=== PATIENT | male | born 1975 | race Asian ===

== ENCOUNTER 2019-11-16 14:59 | Emergency (ER) | payer OTHER ==
--- NOTE | 2019-11-16 15:08 | PDOC ---
History of Present Illness - General Chief Complaint: Wound Stated Complaint: BOIL Time Seen by Provider: 11/16/19 15:05 - History of Present Illness Initial Comments: HPI: 44yo M with no reported PMH presenting with left buttock pain. Patient states he has had pain in this area for the past week. The area started as a small site and progressively enlarged. The pain significantly worsened over that time likely because he has endured long international flights. [place], he saw a pharmacist and was given miconazole cream to place over the area which he believes has helped. Pain worsens with certain movements including standing or sitting in a certain way. Patient has not noticed any discharge or bleeding from the area. Has never had an infection like this before. No fevers or chills. PCP: Dr. Nuno Coombs (has never seen him before but has an appointment on Sunday) ROS: Constitutional: no fever, no chills HEENT: no throat pain, no dysphagia Cardiovascular: no chest pain, no palpitations Respiratory: no cough, no shortness of breath Gastrointestinal: no abdominal pain, no nausea Genitourinary: no dysuria, no hematuria Musculoskeletal: no myalgia, no arthralgia Skin: +infection, no itching Neurologic: no headache, no weakness Psych: no agitation, no anxiety PE: General: Awake, alert, and fully oriented, in no acute distress Head: No signs of trauma Eyes: EOMI, sclera anicteric ENT: Moist mucus membranes Neck: Normal ROM, supple Lungs: Lungs clear, Normal breath sounds Cardio: Regular rhythm, S1 and S2 present Abdomen: Soft, nontender. No guarding, no rebound, no masses Extremities: Normal range of motion, Distal pulses present SKIN: ~5cm area of soft tissue swelling/erythema/tenderness/fluctuance along intergluteal cleft and abutting perineal area, otherwise warm, dry, normal turgor Neurologic: Cranial nerves II through XII grossly intact. Normal speech ED Course/MDM: DDX including but not limited to abscess, cellulitis, perirectal vs anorectal abscess Patient declined pain medication Labs CT Pelvis with IV contrast as we are concerned about anorectal involvement 11/16/19 15:51 CBC WBC 7.8 K/mm3 (4.0-10.8) 11/16/19 15:50 RBC 4.65 M/mm3 (4.00-5.60) 11/16/19 15:50 Hgb 14.7 GM/dl (11.7-16.9) 11/16/19 15:50 Hct 43.9 % (35.4-49) 11/16/19 15:50 MCV 94.3 fl (80-96) 11/16/19 15:50 MCH 31.5 pg (25.7-33.7) 11/16/19 15:50 MCHC 33.5 g/dl (32.0-35.9) 11/16/19 15:50 RDW 11.8 % (11.9-15.9) L 11/16/19 15:50 Plt Count 286 K/MM3 (134-434) 11/16/19 15:50 MPV 7.6 fl (7.5-11.1) 11/16/19 15:50 Absolute Neuts (auto) 5.4 K/mm3 11/16/19 15:50 Neutrophils % 67.5 % (42.8-82.8) 11/16/19 15:50 Lymphocytes % 22.4 % (8-40) 11/16/19 15:50 Monocytes % 8.0 % (3.8-10.2) 11/16/19 15:50 Eosinophils % 1.7 % (0-4.5) 11/16/19 15:50 Basophils % 0.4 % (0-2.0) 11/16/19 15:50 No leukocytosis CMP Sodium 138 mmol/L (136-145) 11/16/19 15:50 Potassium 4.0 mmol/L (3.5-5.1) 11/16/19 15:50 Chloride 105 mmol/L (98-107) 11/16/19 15:50 Carbon Dioxide 23 mmol/L (21-32) 11/16/19 15:50 Anion Gap 10 MMOL/L (8-16) 11/16/19 15:50 BUN 18.0 mg/dl (7-18) 11/16/19 15:50 Creatinine 0.9 mg/dl (0.55-1.3) 11/16/19 15:50 Est GFR (CKD-EPI)AfAm 120.81 11/16/19 15:50 Est GFR (CKD-EPI)NonAf 104.24 11/16/19 15:50 Random Glucose 117 mg/dl (74-106) H 11/16/19 15:50 Calcium 9.2 mg/dl (8.5-10) 11/16/19 15:50 Total Bilirubin 0.7 mg/dl (0.2-1) 11/16/19 15:50 AST 21 U/L (15-37) 11/16/19 15:50 ALT 23 U/L (13-61) 11/16/19 15:50 Alkaline Phosphatase 56 U/L (45-117) 11/16/19 15:50 Total Protein 6.6 g/dl (6.4-8.2) 11/16/19 15:50 Albumin 3.9 g/dl (3.4-5.0) 11/16/19 15:50 Electrolytes unremarkable Cr normal No transaminitis CT as read by imaging realtime captioner: "REASON FOR EXAM: Left buttock abscess COMPARISON: NONE FINDINGS: Posterior perianal abscess is seen measuring 2.8 x 2.4 x 1.7 cm located along the left intergluteal fold with enhancing capsule and surrounding soft tissue thickening. There is no evidence of bowel obstruction, colitis, ascites, abscess, free air or pneumatosis. The appendix is normal. There is no suspicious pelvic mass or pathologic adenopathy. No evidence of inguinal hernias. Distal abdominal aorta, iliac and common femoral arteries are patent. The bladder is unremarkable. Bony pelvis is intact and without fracture or dislocation. Bilateral hip joints are within normal. SI joints and symphysis pubis observed without diastasis. Pelvic muscles intact without evidence of injury. No hematoma. IMPRESSION: Posterior perianal abscess with cellulitis." I&D performed Please see procedure note 11/16/19 18:06 Percocet for pain Wound to be evaluated in two days, either at PCP office or in the ED Strong return precautions given Stable for discharge 11/16/19 18:12 Past History - Past Medical History Allergies/Adverse Reactions: Allergies Allergy/AdvReac Type Severity Reaction Status Date / Time No Known Allergies Allergy Verified 11/16/19 15:00 Home Medications: Ambulatory Orders NK [No Known Home Medication] 11/16/19 Procedures - Incision and Drainage I&D Site: Left: Perirectal Anesthesia: 1% Lidocaine Attempts: 1 Iodinated Packin/2 in Plain Packing: Yes Complications: none ED Treatment Course - LABORATORY CBC & Chemistry Diagram: 11/16/19 15:50 11/16/19 15:50 Discharge - Discharge Information Problems reviewed: Yes Clinical Impression/Diagnosis: Perianal abscess Condition: Stable Disposition: HOME - Follow up/Referral - Patient Discharge Instructions Patient Printed Discharge Instructions: DI for Anal Abscess Additional Instructions: You came to the emergency department for an abscess. The abscess was drained and packing was placed. The area should continue to drain. You can take byyv-[id number] tylenol or motrin for pain. Follow the instructions on the medication bottle. Make sure you do not take too much medicine. The maximum daily dose for tylenol is 4000mg/day. The maximum daily dose for motrin is 3200mg/day. Your wound must be re-evaluated on Sunday. Reevaluation can be performed by your primary patient care assistant or you may return to the ED. If the wound is worsening sooner over the next 24 hours, please return to the ED. Seek medical attention if any of the following occur: -Fever or chills -Reaccumulation of pus in the area -Increased pain or redness -Red streaks -Increased swelling If you think you are having an emergency, call for emergency medical services or present to the emergency department right away. - Post Discharge Activity Work/Back to School Note: Back to Work
[2019-11-16 15:20] VITALS: BP 152/92; PULSE 108; TEMP 98.3; BMI 24.3
--- NOTE | 2019-11-16 15:20 | PDOC ---
Attending Attestation - Resident Resident Name: Dior Guido - ED Attending Attestation I have performed the following: I have examined & evaluated the patient, The case was reviewed & discussed with the resident, I agree w/resident's findings & plan, Exceptions are as noted - HPI HPI: 44 yo M no significant PMH presents with L buttock pain for the past week. He states that initially he attributed it to a pimple, but it did not resolve. He was in [place] for work this past week and started to apply miconazole cream with slight improvement. He states that the swelling has worsened, and now it is painful to sit. Denies fever. No drainage from the area. - Physicial Exam PE: GENERAL: Awake, alert, and fully oriented, in no acute distress HEAD: No signs of trauma EYES: PERRLA, EOMI, sclera anicteric, conjunctiva clear ENT: Auricles normal inspection, hearing grossly normal, nares patent, oropharynx clear without exudates. Moist mucosa NECK: Normal ROM, supple, no lymphadenopathy, JVD, or masses LUNGS: Breath sounds equal, clear to auscultation bilaterally. No wheezes, and no crackles HEART: Regular rate and rhythm, normal S1 and S2, no murmurs, rubs or gallops ABDOMEN: Soft, nontender, normoactive bowel sounds. No guarding, no rebound. No masses EXTREMITIES: Normal range of motion, no edema. No clubbing or cyanosis. No cords, erythema, or tenderness NEUROLOGICAL: Cranial nerves II through XII grossly intact. Normal speech, normal gait. Motor and sensation intact SKIN: Warm, dry, normal turgor, no rashes or lesions noted. : +L buttock abscess with fluctuant area adjacent to the rectum. +Surrounding erythema, induration, tenderness. - Medical Decision Making Pt with abscess to L buttock, will obtain CT pelvis based on proximity to the rectum. Possible surgical consult depending on CT findings.
[2019-11-16] MEDS ORDERED: CLINDAMYCIN 600MG PREMIX IVPB 600 MG/50 ML BAG IVPB ONE (16:10)
[2019-11-16 16:21] LABS: BASO % 0.4 % (0-2.0); EOS % 1.7 % (0-4.5); HEMATOCRIT 43.9 % (35.4-49); HEMOGLOBIN 14.7 GM/dl (11.7-16.9); LYMPH % 22.4 % (8-40); MCH 31.5 pg (25.7-33.7); MCHC 33.5 g/dl (32.0-35.9); MEAN CELL VOLUME 94.3 fl (80-96); MEAN PLT VOLUME 7.6 fl (7.5-11.1); NEUT % 67.5 % (42.8-82.8); PLATELET COUNT 286 K/MM3 (134-434); RBC 4.65 M/mm3 (4.00-5.60); RDW 11.8 % (11.9-15.9); WHITE BLOOD COUNT 7.8 K/mm3 (4.0-10.8)
[2019-11-16 16:44] LABS: ALBUMIN 3.9 g/dl (3.4-5.0); BILIRUBIN,TOTAL 0.7 mg/dl (0.2-1); CALCIUM 9.2 mg/dl (8.5-10); CREATININE 0.9 mg/dl (0.55-1.3); TOT PROT 6.6 g/dl (6.4-8.2)
[2019-11-16] MEDS ORDERED: CLINDAMYCIN PHOSPHATE 600 MG/4 ML VIAL ONE (17:42)
== END 2019-11-16 18:19 | disposition home or self-care (01) ==
LOC: FER 14:59
PROC: 0H99XZZ Drainage of Perineum Skin, External Approach (ICD-10-PCS; principal; 2019-11-16)
PROC: 3E03329 Introduction of Other Anti-infective into Peripheral Vein, Percutaneous Approach (ICD-10-PCS; 2019-11-16)
DX: K61.0 Anal abscess (principal)
CPT/HCPCS: 36415; 72193-TC; 80053; 85025; 99285-25; Q9967